=== PATIENT | male | born 1980 | race Hispanic/Latino ===

== ENCOUNTER 2018-04-22 06:25 | Emergency (ER) | payer SELFPAY ==
[2018-04-22 07:11] LABS: #Basophils 0.1 thou/uL (0.0-0.2); #Eosinphils 0.2 thou/uL (0.0-0.7); #Lymphocytes 3.2 thou/uL (1.20-3.40); #Monocytes 0.5 thou/uL (0.11-0.59); #Neutrophils 5.6 thou/uL (1.40-6.50); %Basophils 1.5 % (0.0-1.0); %Eosinophils 2.3 % (0.0-10.0); %Lymphocytes 32.8 % (21.0-51.0); %Neutrophils 58.5 % (42.0-75.0); Hemoglobin 15.5 g/dL (14.0-18.0); Mean Corpuscular HGB CONC 32.8 g/dL (32.0-36.0); Mean Corpuscular Volume 85.3 fL (78.0-98.0); Mean Platelet Volume 8.3 fL (7.4-10.4); Platelet Count 267 thou/uL (130-400); RBC Distribution Width 11.9 % (11.5-14.5); Red Blood Cell (RBC) Count 5.54 mill/uL (4.70-6.10); White Blood Cell (WBC) Count 9.6 thou/uL (4.8-10.8)
[2018-04-22 07:18] LABS: ALT (SGPT) 28 U/L (8-55); AST (SGOT) 15 U/L (5-34); Albumin 4.6 g/dL (3.5-5.0); Alkaline Phosphatase 66 U/L (40-150); Anion Gap 15 mmol/L (10-20); BUN (Urea Nitrogen) 10 mg/dL (8.9-20.6); Bilirubin, Total 0.8 mg/dL (0.2-1.2); CK (CPK) 107 U/L (30-200); Calc. Creatinine Clearance 0 mL/min (70-130); Calcium 9.1 mg/dL (7.8-10.44); Carbon Dioxide 23 mmol/L (22-29); Chloride 104 mmol/L (98-107); Estimated GFR-MDRD Greater than 90; Potassium 3.6 mmol/L (3.5-5.1); Protein, Total 7.6 g/dL (6.0-8.3); Sodium 138 mmol/L (136-145)
[2018-04-22 07:20] LABS: CKMB 1.1 ng/mL (0-6.6); Troponin I Less than 0.010 ng/mL (< 0.028)
[2018-04-22 07:21] LABS: Lipase 19 U/L (8-78)
[2018-04-22 07:25] LABS: Glucose 164 mg/dL (70-105)
[2018-04-22 07:26] LABS: Bilirubin Negative (Negative); Blood, Urine Negative (Negative); Clarity Clear (Clear); Glucose, Urine (Dipstick) Negative (Negative); Leukocyte Negative (Negative); Nitrite Negative (Negative); Protein, Urine (Dipstick) Negative (Neg-Trace); Specific Gravity, Urine 1.002 (1.002-1.036); Urobilinogen 0.2 mg/dL (0.2-1.0); pH, Urine 5.5 (5.0-9.0)
[2018-04-22] MEDS ORDERED: Ketorolac Tromethamine 30 MG/ML VIAL ONE (07:46)
--- NOTE | 2018-04-22 08:46 | RAD ---
SINGLE VIEW OF THE CHEST: Comparison: None. History: Chest pain for three days. FINDINGS: Single view of the chest shows a normal sized cardiomediastinal silhouette. There is no evidence of c onsolidation, mass, or pleural effusion. The bones are unremarkable. IMPRESSION: No evidence of acute cardiopulmonary disease. POS: [facility]
== END 2018-04-22 07:50 | disposition home or self-care (01) ==
LOC: MADERS 06:25
DX: R07.9 Chest pain, unspecified (principal)
CPT/HCPCS: 71045; 80053; 81003; 82553; 83690; 84484; 85025; 93005; 96361; 96374; J1885

== ENCOUNTER 2018-06-25 23:11 | Emergency (ER) | payer SELFPAY ==
[2018-06-26] MEDS ORDERED: Acetaminophen 500 MG TAB ONE (00:39)
[2018-06-26 02:33] LABS: #Basophils 0.1 thou/uL (0.0-0.2); #Lymphocytes 2.4 thou/uL (1.20-3.40); #Monocytes 0.4 thou/uL (0.11-0.59); %Basophils 1.1 % (0.0-1.0); %Eosinophils 0.4 % (0.0-10.0); %Lymphocytes 24.3 % (21.0-51.0); %Monocytes 4.4 % (0.0-10.0); %Neutrophils 69.7 % (42.0-75.0); Hemoglobin 16.9 g/dL (14.0-18.0); Mean Corpuscular Hemoglobin 28.7 pg (27.0-31.0); Mean Corpuscular Volume 84.3 fL (78.0-98.0); Mean Platelet Volume 8.8 fL (7.4-10.4); Platelet Count 260 thou/uL (130-400); RBC Distribution Width 11.7 % (11.5-14.5)
[2018-06-26 02:43] LABS: ALT (SGPT) 23 U/L (8-55); AST (SGOT) 16 U/L (5-34); Albumin 4.8 g/dL (3.5-5.0); Alkaline Phosphatase 67 U/L (40-150); Anion Gap 19 mmol/L (10-20); BUN (Urea Nitrogen) 11 mg/dL (8.9-20.6); Bilirubin, Total 0.8 mg/dL (0.2-1.2); Calc. Creatinine Clearance 0 mL/min (70-130); Calcium 9.5 mg/dL (7.8-10.44); Carbon Dioxide 23 mmol/L (22-29); Chloride 104 mmol/L (98-107); Estimated GFR-MDRD Greater than 90; Globulin 3.1 g/dL (2.4-3.5); Glucose 129 mg/dL (70-105); Potassium 3.9 mmol/L (3.5-5.1); Protein, Total 7.9 g/dL (6.0-8.3); Sodium 142 mmol/L (136-145)
--- NOTE | 2018-06-26 07:49 | RAD ---
CHEST 1 VIEW: HISTORY: Chest pain. COMPARISON: Radiograph of 04/22/2018. FINDINGS: Lungs are clear. No pneumothorax or effusion. Cardiac silhouette and mediastinal contour is within normal limits. IMPRESSION: No acute intrathoracic abnormality. POS: [facility]
--- NOTE | 2018-06-26 08:06 | CT ---
PRELIMINARY REPORT/[facility]/EMERGENTY AFTER-HOURS PROCEDURE CT Cervical Spine Without Contrast EXAM DATE/TIME: 06/25/2018 11:56 PM CLINICAL HISTORY: 37 years old, male; Injury or trauma; Fall; Initial encounter; Sprain or strain, cervical ligaments; Injury date: 06-25-17; Injury details: Fell 3 ft C/O midline cervical spine TECHNIQUE: Axial computed tomography images of the cervical spine without intravenous contrast. All CT scans at this facility use at least one of these dose optimization techniques: automated exposure control; mA and/or kV adjustment per patient size (includes targeted exams where dose is matched to clinical marge cation); or iterative reconstruction. Coronal and sagittal reformatted images were created and review ed. COMPARISON: No relevant prior studies available. FINDINGS: Vertebrae: Fusion of the C2 and C3 vertebral bodies, developmental variant. No evidence of acute frac ture. No evidence of malalignment. Cervical spine is anatomically aligned with minimal rightward spin al curvature. Discs/Spinal canal/Neural foramina: No spinal stenosis. No neural foraminal narrowing. Soft tissues: Unremarkable. Lungs: Lung apices are normal. IMPRESSION: 1. No evidence of acute fracture. 2. No evidence of malalignment. 3. Minimal rightward cervical spine curvature - possibly normal for patient, positional or underlying muscle spasm. Thank you for allowing us to participate in the care of your patient. Dictated and Authenticated by: Emelina Riggs MD 06/26/2018 1:41 AM Central Time ([place] & [place]) FINAL REPORT CT CERVICAL SPINE WITHOUT CONTRAST: Date: 06/25/18 HISTORY: 3-ft fall. Midline cervical pain. COMPARISON: None. FINDINGS/IMPRESSION: Findings and impression are concordant with the preliminary report by [facility]. There is anterior superio r end plate height loss at C7 and T1 without sclerosis or lucency, likely chronic. MRI has greater se nsitivity for nondisplaced or nonsclerotic fractures. POS: [facility]
== END 2018-06-26 03:00 | disposition home or self-care (01) ==
LOC: MADERS 23:11
DX: S13.9XXA Sprain of joints and ligaments of unspecified parts of neck, initial encounter (principal); R07.9 Chest pain, unspecified; I10 Essential (primary) hypertension; W17.89XA Other fall from one level to another, initial encounter
CPT/HCPCS: 36415; 71045; 72125; 80053; 84484; 85025